=== PATIENT | female | born 1950 | race Caucasian/White ===

== ENCOUNTER 2025-08-24 15:26 | Emergency (ER) | payer MEDICARE, OTHER ==
[~2025-08-24] VITALS: Ht 162.6 cm; Wt 75.0 kg
[~2025-08-24 15:26] MED LIST: ASPI-1497 PO; GLIP10TA17 PO
[2025-08-24 15:32] VITALS: O2SAT 99
[2025-08-24] MEDS: SODIUM CHLORIDE 0.9% 1,000 ML IV ONE (15:50)
[2025-08-24] MEDS: ONDANSETRON HCL 4MG/2ML INJ IV ONE (15:51)
[2025-08-24] MEDS: KETOROLAC 15MG/ML VIAL IV ONE (15:51)
[2025-08-24 16:32] LABS: HEMATOCRIT. 27.6 % (36.0-48.0); HEMOGLOBIN. 9.1 g/dL (12.0-16.0); MEAN PLATELET VOLUME 9.6 fl (7.4-10.4); PLATELET 218 x1000/uL (130-400); RED BLOOD CELL COUNT 3.17 mill/uL (4.2-5.4); RED CELL DISTRIBUTION WIDTH 15.0 % (11.6-14.6)
[2025-08-24 16:46] LABS: CREATININE 0.9 mg/dL (0.6-1.0); ETHANOL BLOOD < 10 mg/dL (<10); TROPONIN I HIGH SENSITIVITY 31 ng/L (3.0-34); UREA NITROGEN BLOOD 9 mg/dL (9-23)
[2025-08-24 16:47] LABS: PROTEIN TOTAL 6.0 g/dL (6.0-8.3)
[2025-08-24 16:48] LABS: ASPARTATE AMINOTRANSFERASE 186 IU/L (<34); BILIRUBIN DIRECT 0.1 mg/dL (<=3.0); BILIRUBIN TOTAL 0.2 mg/dL (0.1-1.0)
[2025-08-24] MEDS: POTASSIUM CHLORIDE 20MEQ/PACKET PO ONE ×2 (16:55→18:48)
[2025-08-24] MEDS: KCL 20MEQ/100ML PREMIX 100 ML IV SCH (16:56)
[2025-08-24 16:57] LABS: BAND% 1.0 % (1.0-6.0); LYMPHOCYTES % MANUAL 7.0 % (20.0-60.0); MONOCYTES % MANUAL 3.0 % (2.0-8.0); NEUTROPHILS % MANUAL 89.0 % (45.0-75.0)
[2025-08-24 16:58] LABS: PLATELET ESTIMATE NORMAL
[2025-08-24] MEDS: MAGNESIUM 1 G PREMIX 100 ML IV ONE (17:20)
[2025-08-24] MEDS: CEFTRIAXONE 2GM/50ML 50 ML IV ONE (17:24)
[2025-08-24] MEDS: VANCOMYCIN 1.5GM PMX (XELLIA) 300 ML IV SCH (17:54)
[2025-08-24] MEDS: MAGNESIUM 2 G PREMIX 50 ML IV ONE (18:24)
[2025-08-24 19:14] VITALS: BP 135/67; PULSE 77; RESP 19; TEMP 36.6; O2SAT 100
== END 2025-08-24 19:48 | disposition short-term general hospital (02) ==
LOC: ER 15:26
DX: U07.1 COVID-19 (principal); R53.1 Weakness; E87.6 Hypokalemia; E83.42 Hypomagnesemia; D64.9 Anemia, unspecified; E11.9 Type 2 diabetes mellitus without complications; E78.00 Pure hypercholesterolemia, unspecified; E03.9 Hypothyroidism, unspecified
CPT/HCPCS: 80076; 80048; 80320; 83690; 83735; 84132; 85025; 86850; 86900; 86901; 84484; 36415; 71045; 74176; 93005; 96367; 96368; 96361; 96365; 96375; 99291; 87426; J3373; J0696; J1885; J3475 ×2; J2405; J3480; J7030; G0480